=== PATIENT | male | born 2000 | race Caucasian/White ===

== ENCOUNTER 2022-03-31 13:07 | Emergency (ER) | payer OTHER, SELFPAY ==
[2022-03-31 14:07] VITALS: BP 156/87; PULSE 74; RESP 16; TEMP 37.6; O2SAT 99
--- NOTE | 2022-03-31 14:56 | ED.EAR ---
HPI - Ear Problem General Chief complaint: Ear Stated complaint: ear infection Time Seen by Provider: 03/31/22 14:46 History of Present Illness HPI Narrative: 21-year-old male who presents to [facility] with 2-day history of right ear pain with swelling and redness to his outer ear. Patient states he has been taking some ibuprofen for his discomfort but it has not helped much. He reports that [place] in the ocean [place] and got water in his ears. He reports that his right ear has been sore and he has pain to outer ear and tissue in front of ear with some periauricular redness and some swelling. Patient denies any acute fevers, chills, or sweats or any other complaints. MD Complaint: ear pain Location: right ear Treatment prior to arrival: oral analgesic and other Related Data Allergies Allergy/AdvReac Type Severity Reaction Status Date / Time No Known Allergies Allergy Verified 03/31/22 14:06 Review of Systems Review of Systems: CONSTITUTIONAL: Denies fever, chills, or sweats. EYES: Denies visual changes, redness, or discharge. ENT: Denies rhinorrhea, congestion, sore throat, positive for right ear otalgia, pain and redness preauricular area CARDIOVASCULAR: Denies chest pain, palpitations, or edema. RESPIRATORY: Denies cough or dyspnea. GASTROINTESTINAL: Denies abdominal pain, nausea, vomiting, or diarrhea. GENITOURINARY: Denies dysuria or hematuria. SKIN: Denies rash or itching. MUSCULOSKELETAL: Denies back pain, joint pain, or myalgia. NEUROLOGIC: Denies headache, numbness, or weakness. PSYCHIATRIC: Denies anxiety or depression. All systems reviewed & are unremarkable except as noted in HPI and below PMFSH Past Medical History Medical History (Updated 03/31/22 @ 19:55 by Sunita Galdamez NP) No significant medical problems Surgical History Surgical History (Updated 03/31/22 @ 19:55 by Sunita Galdamez NP) H/O right knee surgery Social History Social History (Updated 03/31/22 @ 19:56 by Sunita Galdamez NP) Smoking status: Never smoker Alcohol intake: never Substance use: never Living arrangements: with family Occupation/Education: student Gender identity (if verbalized by the patient): Male Comments At time of signature, agree with nursing past medical, surgical, social and family history. There is no relevant family history pertinent to the presenting complaint Exam Narrative: GENERAL: Well-appearing, well-nourished, and in no acute distress. HEAD: Normocephalic, atraumatic. EYES: PERRLA and EOMI. ENT: Nares clear, no rhinorrhea or epistaxis. Mucous membranes moist. Right TM dull with right ear canal swollen and red and painful, no drainage noted, right outer ear has redness and periauricular area red and tender also, NECK: Supple.no lymphadenopathy CHEST: Clear to auscultation. No respiratory distress.SAO2 99% on room air HEART: Regular rate and rhythm. No murmur heard. Normal peripheral pulses. ABDOMEN: Soft, nontender, nondistended, normal active bowel sounds. EXTREMITIES: Normal range of motion. No edema. SKIN: Warm, dry, no rash. NEURO: No focal deficits. Alert and oriented x3. Course Course Level of Care: Express Care Visit Vital Signs Vital signs: Vital Signs Temperature 37.6 C 03/31/22 14:07 Pulse Rate 74 03/31/22 14:07 Respiratory Rate 16 03/31/22 14:07 Blood Pressure 156/87 H 03/31/22 14:07 Pulse Oximetry 99 03/31/22 14:07 Oxygen Delivery Room Air 03/31/22 14:07 Temperature 37.6 C 03/31/22 14:07 Pulse Rate 74 03/31/22 14:07 Respiratory Rate 16 03/31/22 14:07 Blood Pressure 156/87 H 03/31/22 14:07 Pulse Oximetry 99 03/31/22 14:07 Oxygen Delivery Room Air 03/31/22 14:07 Medical Decision Making Differential Diagnosis Differential Diagnosis: otitis media, otitis externa, external ear pain, periauricular swelling, URI Medical Records Medical records reviewed: Yes I reviewed the external patient's medical records. Vi
== END 2022-03-31 15:15 | disposition home or self-care (01) ==
PROVIDERS: Emergency Provider Registered Nurse
DX: H60.91 Unspecified otitis externa, right ear (principal)
CPT/HCPCS: 99213; G0463